=== PATIENT | male | born 1975 | race Caucasian/White ===

== ENCOUNTER 2024-03-13 12:33 | Inpatient (IN) | payer OTHER ==
[2024-03-13 13:00] VITALS: BMI 30.7
[2024-03-13] MEDS ORDERED: guaiFENesin 600 MG TABLET.ER (FP) PO PRN (13:36)
[2024-03-13] MEDS ORDERED: P-EPHED 60MG/TRIPROLIDI 2.5MG TABLET PO PRN (13:36)
[2024-03-13] MEDS ORDERED: BENZOCAINE/MENTHOL (CHLORASEPTIC ) LOZENGE MM PRN (13:36)
[2024-03-13] MEDS ORDERED: BENZONATATE 200 MG CAPSULE PO PRN (13:36)
[2024-03-13] MEDS ORDERED: NALOXONE (NARCAN) HCL 4 MG/0.1 ML SPRAY NS PRN (13:36)
[2024-03-13] MEDS ORDERED: IBUPROFEN 600 MG TABLET (FP) PO PRN (13:36)
[2024-03-13] MEDS ORDERED: POLYETHYLENE GLYCOL (HEALTHYLAX) 3350 17 GM PACKET PO PRN (13:36)
[2024-03-13] MEDS ORDERED: ACETAMINOPHEN 325 MG TABLET (FP) PO PRN (13:36)
[2024-03-13] MEDS ORDERED: LOPERAMIDE HCL 2 MG CAPSULE PO PRN (13:36)
[2024-03-13] MEDS ORDERED: NALOXONE HCL 0.4 MG/ML VIAL IM PRN (13:36)
[2024-03-13] MEDS ORDERED: NICOTINE POLACRILEX 2 MG LOZENGE BC PRN (13:36)
[2024-03-13] MEDS ORDERED: DOCUSATE SODIUM 100 MG CAPSULE (FP) PO PRN (13:36)
[2024-03-13] MEDS ORDERED: MAGNESIUM HYDROX 2400MG/30ML ORAL SUSPENSION 30 ML CUP PO PRN (13:36)
[2024-03-13] MEDS ORDERED: BISACODYL 5 MG TABLET.DR (FP) PO PRN (13:36)
[2024-03-13] MEDS ORDERED: NICOTINE POLACRILEX 2 MG GUM BUC PRN (13:36)
[2024-03-13] MEDS ORDERED: BISMUTH SUBSALICYLATE 524 MG/30 ML PO PRN (17:15)
[2024-03-13] MEDS ORDERED: DICYCLOMINE HCL 10 MG CAPSULE PO PRN (17:15)
[2024-03-13] MEDS ORDERED: ONDANSETRON *ODT* 4 MG TABLET SL PRN (17:15)
[2024-03-13] MEDS: BACLOFEN 10 MG TABLET (FP) PO SCH (17:44)
[2024-03-13] MEDS: methaDONE HCL 10 MG TABLET PO ONE ×2 (17:44→19:04)
[2024-03-13] MEDS: MELATONIN 5 MG TABLETS PO SCH (21:10)
[2024-03-13] MEDS: THIAMINE 100 MG TABLET PO SCH (21:10)
[2024-03-14] MEDS: methaDONE HCL 10 MG TABLET PO SCH (07:00)
[2024-03-14] MEDS: PRENATAL VITAMINS W/ FOLIC ACID TABLET (FP) PO SCH (10:03)
[2024-03-14] MEDS: LISINOPRIL 5 MG TABLET PO SCH (10:04)
[2024-03-14 11:29] LABS: PH,URINE 6.5 (5.0-8.0); URINE APPEARANCE CLEAR; URINE BILIRUBIN NEGATIVE (NEGATIVE); URINE COLOR YELLOW; URINE GLUCOSE (UA) NEGATIVE (NEGATIVE); URINE KETONE NEGATIVE (NEGATIVE); URINE LEUK ESTERASE NEGATIVE (NEGATIVE); URINE NITRITE NEGATIVE (NEGATIVE); URINE PROTEIN NEGATIVE (NEGATIVE); URINE UROBILINOGEN 0.2 mg/dL (0.2-1.0)
[2024-03-14 11:41] LABS: POTASSIUM 3.5 mmol/L (3.5-5.1)
[2024-03-14 11:43] LABS: HEMATOCRIT 35.8 % (35.4-49); HEMOGLOBIN 11.9 GM/dL (11.7-16.9); MCH 29.9 pg (25.7-33.7); MCHC 33.1 g/dl (32.0-35.9); MEAN CELL VOLUME 90.4 fl (80-96); MEAN PLT VOLUME 9.7 fl (7.5-11.1); PLATELET COUNT 200 10^3/uL (134-434); RBC 3.96 M/mm3 (4.00-5.60); RDW 13.1 % (11.9-15.9); WHITE BLOOD COUNT 5.4 K/mm3 (4.0-10.0)
[2024-03-14 11:44] LABS: CALCIUM 8.9 mg/dL (8.5-10.1)
[2024-03-14 11:45] LABS: BLOOD UREA NITROGEN 17.2 mg/dL (7-18)
[2024-03-14 11:48] LABS: CREATININE 1.1 mg/dL (0.55-1.3)
[2024-03-14 11:49] LABS: TOT PROT 7.1 g/dl (6.4-8.2)
[2024-03-14 11:50] LABS: BILIRUBIN,TOTAL 0.3 mg/dL (0.2-1)
[2024-03-14] MEDS: DULoxetine HCL 30 MG CAPSULE.DR PO SCH (14:08)
[2024-03-14] MEDS: methaDONE HCL 10 MG TABLET PO ONE (21:14)
[2024-03-14] MEDS: hydrOXYzine PAMOATE 25 MG CAPSULE (FP) PO PRN (21:16)
[2024-03-15] MEDS ORDERED: methaDONE HCL 10 MG TABLET PO SCH (09:30)
[2024-03-15] MEDS: LISINOPRIL 5 MG TABLET PO SCH (09:38)
[2024-03-15] MEDS: MAG HYDROX/AL HYDROX/SIMETH 30 ML UNIT-DOSE CUP PO PRN (13:21)
[2024-03-19] MEDS: MELATONIN 5 MG TABLETS PO SCH (21:23)
[2024-03-20] MEDS: DULoxetine HCL 60 MG CAPSULE.DR PO SCH (10:10)
[2024-03-20] MEDS: BACLOFEN 10 MG TABLET (FP) PO SCH ×2 (13:10→14:37)
[2024-03-25] MEDS: AMOX TR/POT CLAV 500MG/125MG TABLETS (FP) PO SCH (17:06)
[2024-04-03] MEDS: IBUPROFEN 400 MG TABLET (FP) PO PRN (07:16)
[2024-04-10 06:42] VITALS: TEMP 97.7
[2024-04-10 09:06] VITALS: BP 148/85; PULSE 74; RESP 17
== END 2024-04-10 09:13 | disposition home or self-care (01) | DRG 772 ==
LOC: YASAS 12:33 → Y3W 15:06
PROVIDERS: ADMIT Allergy & Immunology; ATTEND Psychiatry & Neurology Pain Medicine
PROC: HZ42ZZZ Group Counseling for Substance Abuse Treatment, Cognitive-Behavioral (ICD-10-PCS; principal; 2024-03-13)
DX: F11.20 Opioid dependence, uncomplicated (principal); F14.20 Cocaine dependence, uncomplicated; F10.20 Alcohol dependence, uncomplicated; F17.210 Nicotine dependence, cigarettes, uncomplicated; F19.282 Other psychoactive substance dependence with psychoactive substance-induced sleep disorder; F19.24 Other psychoactive substance dependence with psychoactive substance-induced mood disorder; F32.9 Major depressive disorder, single episode, unspecified; I10 Essential (primary) hypertension; K02.9 Dental caries, unspecified; Z91.410 Personal history of adult physical and sexual abuse; Z63.0 Problems in relationship with spouse or partner
CPT/HCPCS: 36415; 71045-TC-FY; 80053; 80305; 80307; 81003; 82140; 85027; 86780; 87811; 93005; 93010; J0475